=== PATIENT | male | born 1950 | race Caucasian/White ===

== ENCOUNTER → 2024-12-10 | Outpatient (CLI) | payer MEDICARE ==
[2024-12-10 14:30] LABS: INR 3.02 (0.85-1.15); PROTHROMBIN TIME 28.7 SEC (9.6-11.6)
[2024-12-10 14:32] LABS: PARTIAL THROMBOPLASTIN TIME 45.3 SEC (26.3-35.5)
== END | disposition home or self-care (01) ==
LOC: LAB 13:30
PROVIDERS: ATTEND Family Medicine
DX: I48.0 Paroxysmal atrial fibrillation (principal); Z51.81 Encounter for therapeutic drug level monitoring; Z79.01 Long term (current) use of anticoagulants
CPT/HCPCS: 36415; 85610; 85730